=== PATIENT | female | born 1975 | race Hispanic/Latino ===

== ENCOUNTER 2021-04-18 14:22 | Inpatient (IN) | payer MEDICAID ==
[2021-04-18] MEDS ORDERED: MORPHINE 4 MG/1 ML INJ IV ONE (14:47)
[2021-04-18] MEDS ORDERED: ONDANSETRON 4 MG/2 ML INJ IV ONE (14:47)
[2021-04-18 15:13] LABS: Basophils % (Auto) 0.6 % (0.0-1.8); Eosinophils # (Auto) 0.1 K/mm3 (0.0-0.4); Eosinophils % (Auto) 1.4 % (0.0-4.3); Hematocrit 39.4 % (30.3-42.9); Hemoglobin 13.3 gm/dl (10.1-14.3); Lymphocytes # (Auto) 1.9 K/mm3 (1.2-5.4); Lymphocytes % (Auto) 29.9 % (13.4-35.0); Mean Corpuscular HGB Conc 34 % (30-34); Mean Corpuscular Volume 90 fl (79-97); Monocytes # (Auto) 0.3 K/mm3 (0.0-0.8); Monocytes % (Auto) 4.6 % (0.0-7.3); Platelet Count 219 K/mm3 (140-440); Red Cell Distribution Width 15.1 % (13.2-15.2)
[2021-04-18 15:25] LABS: Blood Urea Nitrogen 5 mg/dL (7-17); Calcium 8.6 mg/dL (8.4-10.2); Hemolysis Index 17
[2021-04-18 15:26] LABS: BUN/Creatinine Ratio 8
[2021-04-18] MEDS ORDERED: POTASSIUM CHLORIDE ER 20 MEQ TAB PO ONE (15:28)
[2021-04-18 15:31] LABS: Bilirubin,Urine NEG (Negative); Blood,Urine NEG (Negative); Calcium Oxalate Crystals,Urine FEW; Color,Urine Yellow (Yellow); Mucus,Urine FEW /HPF; Protein,Urine <15 mg/dL mg/dL (Negative)
[2021-04-18 15:37] LABS: Amphetamine Screen,Urine Negative; Benzodiazepines Screen,Urine Negative; Cannabinoid Screen,Urine Negative; Cocaine Screen,Urine Negative; Methadone Screen,Urine Negative; Opiate Screen,Urine Negative
[2021-04-18 16:14] LABS: Chol/HDL Ratio 2.5 %
[2021-04-18] MEDS ORDERED: ASPIRIN 325 MG TAB PO ONE (21:23)
[2021-04-18] MEDS ORDERED: MORPHINE 2 MG/1 ML INJ IV ONE (21:23)
[2021-04-18] MEDS ORDERED: SODIUM CHLORIDE 0.9% 1000 ML 1,000 ML IV ONE (23:39)
[2021-04-19] MEDS ORDERED: NITROGLYCERIN 0.4 MG TAB SUBL SL PRN (02:47)
[2021-04-19] MEDS ORDERED: ACETAMINOPHEN 325 MG TAB PO PRN ×2 (02:47)
[2021-04-19] MEDS ORDERED: traMADol 50 MG TAB PO PRN (02:47)
[2021-04-19] MEDS ORDERED: ALBUTEROL 2.5 MG/3 ML NEBU IH PRN (02:47)
[2021-04-19] MEDS ORDERED: hydrALAZINE 20 MG/1 ML INJ IV PRN (02:52)
[2021-04-19] MEDS: D5W/0.45% NACL/KCL 20 MEQ 20 MEQ/1,000 ML BAG IV SCH ×2 (04:07→18:55)
[2021-04-19] MEDS: MORPHINE 2 MG/1 ML INJ IV PRN ×2 (04:19→10:45)
[2021-04-19] MEDS: HEPARIN 5,000 UNIT/1 ML VIAL SUB-Q SCH ×3 (05:10→21:26)
[2021-04-19 05:39] LABS: Basophils % (Auto) 0.3 % (0.0-1.8); Eosinophils % (Auto) 0.3 % (0.0-4.3); Hematocrit 40.1 % (30.3-42.9); Hemoglobin 13.4 gm/dl (10.1-14.3); Lymphocytes # (Auto) 1.9 K/mm3 (1.2-5.4); Lymphocytes % (Auto) 28.5 % (13.4-35.0); Mean Corpuscular HGB Conc 34 % (30-34); Mean Corpuscular Volume 90 fl (79-97); Monocytes # (Auto) 0.3 K/mm3 (0.0-0.8); Monocytes % (Auto) 5.1 % (0.0-7.3); Platelet Count 210 K/mm3 (140-440); Red Blood Count 4.45 M/mm3 (3.65-5.03)
[2021-04-19 05:49] LABS: Blood Urea Nitrogen 6 mg/dL (7-17); Calcium 8.6 mg/dL (8.4-10.2); Hemolysis Index 1
[2021-04-19 05:56] LABS: BUN/Creatinine Ratio 10
[2021-04-19] MEDS: FAMOTIDINE 20 MG TAB PO SCH ×2 (10:45→21:26)
[2021-04-19] MEDS: IPRATROPIUM/ALBUTEROL SULFATE 3 ML AMPUL.NEB IH SCH ×3 (11:00→21:52)
[2021-04-20] MEDS: IPRATROPIUM/ALBUTEROL SULFATE 3 ML AMPUL.NEB IH SCH ×4 (02:42→22:25)
[2021-04-20] MEDS: D5W/0.45% NACL/KCL 20 MEQ 20 MEQ/1,000 ML BAG IV SCH ×2 (05:10→19:16)
[2021-04-20] MEDS: HEPARIN 5,000 UNIT/1 ML VIAL SUB-Q SCH ×3 (05:12→22:19)
[2021-04-20] MEDS: MORPHINE 2 MG/1 ML INJ IV PRN ×3 (05:13→23:31)
[2021-04-20] MEDS ORDERED: REGADENOSON 0.4 MG/5 ML INJ IV ONE ×2 (06:31→08:46)
[2021-04-20 07:37] LABS: Basophils # (Auto) 0.1 K/mm3 (0.0-0.1); Eosinophils # (Auto) 0.2 K/mm3 (0.0-0.4); Eosinophils % (Auto) 4.2 % (0.0-4.3); Hematocrit 36.5 % (30.3-42.9); Lymphocytes # (Auto) 2.6 K/mm3 (1.2-5.4); Lymphocytes % (Auto) 46.5 % (13.4-35.0); Mean Corpuscular HGB Conc 33 % (30-34); Mean Corpuscular Volume 90 fl (79-97); Monocytes # (Auto) 0.3 K/mm3 (0.0-0.8); Monocytes % (Auto) 4.9 % (0.0-7.3); Platelet Count 183 K/mm3 (140-440); Red Blood Count 4.06 M/mm3 (3.65-5.03); Red Cell Distribution Width 15.1 % (13.2-15.2)
[2021-04-20 07:48] LABS: Blood Urea Nitrogen 4 mg/dL (7-17); Calcium 8.2 mg/dL (8.4-10.2); Hemolysis Index 8
[2021-04-20 08:02] LABS: BUN/Creatinine Ratio 8
[2021-04-20] MEDS: FAMOTIDINE 20 MG TAB PO SCH ×2 (12:37→22:19)
[2021-04-20] MEDS: ASPIRIN EC 325 MG TAB PO SCH (12:37)
[2021-04-21] MEDS: LOPERAMIDE 2 MG CAP PO PRN ×3 (01:12→21:51)
[2021-04-21] MEDS: HEPARIN 5,000 UNIT/1 ML VIAL SUB-Q SCH ×3 (06:08→21:52)
[2021-04-21] MEDS: D5W/0.45% NACL/KCL 20 MEQ 20 MEQ/1,000 ML BAG IV SCH (06:12)
[2021-04-21] MEDS: ASPIRIN EC 325 MG TAB PO SCH (10:31)
[2021-04-21] MEDS: FAMOTIDINE 20 MG TAB PO SCH ×2 (10:31→21:52)
[2021-04-21] MEDS: MORPHINE 2 MG/1 ML INJ IV PRN ×2 (13:09→21:53)
[2021-04-21] MEDS: ZOLPIDEM 5 MG TAB PO PRN (21:51)
[2021-04-22] MEDS: D5W/0.45% NACL/KCL 20 MEQ 20 MEQ/1,000 ML BAG IV SCH (06:12)
[2021-04-22] MEDS: HEPARIN 5,000 UNIT/1 ML VIAL SUB-Q SCH ×3 (06:16→21:52)
[2021-04-22] MEDS: ASPIRIN EC 325 MG TAB PO SCH (11:22)
[2021-04-22] MEDS: FAMOTIDINE 20 MG TAB PO SCH ×2 (11:22→21:52)
[2021-04-22] MEDS: LOPERAMIDE 2 MG CAP PO PRN (21:52)
[2021-04-22] MEDS: ZOLPIDEM 5 MG TAB PO PRN (21:52)
[2021-04-22] MEDS: MORPHINE 2 MG/1 ML INJ IV PRN (21:57)
[2021-04-22] MEDS: ONDANSETRON 4 MG/2 ML INJ IV PRN (21:57)
[2021-04-23] MEDS: MORPHINE 2 MG/1 ML INJ IV PRN ×3 (00:55→22:10)
[2021-04-23] MEDS: HEPARIN 5,000 UNIT/1 ML VIAL SUB-Q SCH ×3 (05:09→21:59)
[2021-04-23] MEDS: D5W/0.45% NACL/KCL 20 MEQ 20 MEQ/1,000 ML BAG IV SCH ×2 (05:09→14:51)
[2021-04-23] MEDS: ASPIRIN EC 325 MG TAB PO SCH (10:05)
[2021-04-23] MEDS: FAMOTIDINE 20 MG TAB PO SCH ×2 (10:05→22:00)
[2021-04-23] MEDS: ONDANSETRON 4 MG/2 ML INJ IV PRN (17:30)
[2021-04-23] MEDS: BACLOFEN 10 MG TAB PO SCH (22:00)
[2021-04-23] MEDS: ZOLPIDEM 5 MG TAB PO PRN (22:02)
[2021-04-23] MEDS: LOPERAMIDE 2 MG CAP PO PRN (22:12)
[2021-04-24] MEDS: D5W/0.45% NACL/KCL 20 MEQ 20 MEQ/1,000 ML BAG IV SCH ×2 (01:01→21:53)
[2021-04-24] MEDS: HEPARIN 5,000 UNIT/1 ML VIAL SUB-Q SCH ×3 (05:32→21:56)
[2021-04-24] MEDS: MORPHINE 2 MG/1 ML INJ IV PRN ×2 (05:33→21:55)
[2021-04-24] MEDS: BACLOFEN 10 MG TAB PO SCH ×3 (08:20→21:54)
[2021-04-24] MEDS: ASPIRIN EC 325 MG TAB PO SCH (13:51)
[2021-04-24] MEDS: FAMOTIDINE 20 MG TAB PO SCH ×2 (13:52→21:54)
[2021-04-24] MEDS: ZOLPIDEM 5 MG TAB PO PRN (21:58)
[2021-04-25] MEDS: HEPARIN 5,000 UNIT/1 ML VIAL SUB-Q SCH ×3 (05:50→22:28)
[2021-04-25] MEDS: D5W/0.45% NACL/KCL 20 MEQ 20 MEQ/1,000 ML BAG IV SCH ×2 (10:04→22:26)
[2021-04-25] MEDS: BACLOFEN 10 MG TAB PO SCH ×3 (10:05→22:32)
[2021-04-25] MEDS: ASPIRIN EC 325 MG TAB PO SCH (10:06)
[2021-04-25] MEDS: FAMOTIDINE 20 MG TAB PO SCH ×2 (10:06→22:28)
[2021-04-25] MEDS: MORPHINE 2 MG/1 ML INJ IV PRN (17:56)
[2021-04-26] MEDS: MORPHINE 2 MG/1 ML INJ IV PRN ×2 (00:06→21:37)
[2021-04-26] MEDS: ZOLPIDEM 5 MG TAB PO PRN ×2 (00:07→21:36)
[2021-04-26] MEDS: HEPARIN 5,000 UNIT/1 ML VIAL SUB-Q SCH ×3 (06:26→21:36)
[2021-04-26] MEDS: BACLOFEN 10 MG TAB PO SCH ×3 (08:25→21:37)
[2021-04-26] MEDS: D5W/0.45% NACL/KCL 20 MEQ 20 MEQ/1,000 ML BAG IV SCH ×2 (09:48→21:38)
[2021-04-26] MEDS: FAMOTIDINE 20 MG TAB PO SCH ×2 (09:48→21:37)
[2021-04-26] MEDS: ASPIRIN EC 325 MG TAB PO SCH (09:48)
[2021-04-26] MEDS: LOPERAMIDE 2 MG CAP PO PRN (13:23)
[2021-04-27] MEDS: HEPARIN 5,000 UNIT/1 ML VIAL SUB-Q SCH ×2 (05:46→13:29)
[2021-04-27] MEDS: D5W/0.45% NACL/KCL 20 MEQ 20 MEQ/1,000 ML BAG IV SCH (07:22)
[2021-04-27] MEDS: ASPIRIN EC 325 MG TAB PO SCH (09:00)
[2021-04-27] MEDS: BACLOFEN 10 MG TAB PO SCH ×2 (09:00→13:29)
[2021-04-27] MEDS: FAMOTIDINE 20 MG TAB PO SCH (09:00)
[2021-04-27 10:01] VITALS: BP 139/108
[2021-04-27] MEDS: LOPERAMIDE 2 MG CAP PO PRN (17:29)
== END 2021-04-27 17:47 | disposition home or self-care (01) | DRG 280 ==
LOC: ED 14:22 → EEVIPCON 04-19 01:38 → 4A 04-19 01:38 → OBSVTOIN 04-20 12:00
PROVIDERS: ADMIT Hospitalist; ATTEND Internal Medicine
DX: R07.89 Other chest pain (principal); G82.50 Quadriplegia, unspecified; I21.A1 Myocardial infarction type 2; G61.0 Guillain-Barre syndrome; E87.6 Hypokalemia; Z88.0 Allergy status to penicillin; F32.9 Major depressive disorder, single episode, unspecified; G89.29 Other chronic pain; M54.5 Low back pain; I10 Essential (primary) hypertension; Z74.01 Bed confinement status; J45.909 Unspecified asthma, uncomplicated; Z20.822 Contact with and (suspected) exposure to COVID-19
CPT/HCPCS: 36415; 70553; 71045; 72156; 72157; 78452; 78580; 80048; 80061; 80307; 80320; 81001; 82962; 83880; 84484; 85025; 85379; 93005; 93017; 93306; 94640; 96374; 96375; 96376; G0378; A9270-GY; A9502; A9540; A9575; G0480; J0360; J1644; J2270; J2405; J2785; U0003